=== PATIENT | female | born 1995 | race Caucasian/White ===

== ENCOUNTER 2017-04-17 17:28 | Emergency (ER) | payer OTHER ==
--- NOTE | ~2017-04-17 | CT4 ---
[facility] A Service of [facility] RADIOLOGY TEXT RESULTS PATIENT: GILDA MCKEON LOCATION: [facility] : 95 UNIT #: [id number] AGE: [address]: Leonidas Demarco MD SEX: F ORDER DR: [id number] [facility] [address] [facility]. [place], [place] [address] [id number] MR#: [id number] #: [id number] NAME: GILDA MCKEON : 1995 SEX: F STUDY DATE/TIME: 04/17/2017 21:54 UNIT: [facility] ROOM: STUDY DESCRIPTION: CT Abd and Pelv Wo Cont Attending Physician: Leonidas Demarco M.D. Ordering Physician: Leon Bright M.D. Primary Care Physician: Primary Care Physician No MEDICAL IMAGING REPORT This report is preliminary unless electronic signature is present EXAM Abdomen and pelvis CT no contrast, 04/17/2017 INDICATION 21-year-old female with abdominal pain. Heroin usage. Left lower quadrant abdominal pain and nausea today. TECHNIQUE Noncontrast abdomen and pelvis CT was performed. This CT exam was performed with one or more of the following radiation dose reduction techniques: automatic exposure control, adjustment of mA and/or kV according to patient size, and iterative reconstruction. COMPARISON 09/10/2016 FINDINGS Exam markedly degraded by noncontrast technique. Included lung bases are clear. Aorta demonstrates no aneurysm. The spleen, adrenal glands and pancreas are unremarkable and the gallbladder is unremarkable along with the liver. There is a tiny nonobstructing stone in the right kidney. CT PELVIS: The bladder is enlarged and measures up to 18.0 x 9.0 x 13.0 cm. The patient would most likely benefit from Durand catheter placement if unable to void voluntarily. There is no drainable fluid collection in the pelvis or adnexal mass. The bladder displaces peripheral low abdomen and pelvic structures including the uterus displaced posteriorly. No evidence of bowel obstruction. No focal inflammatory change of the bowel. Appendix unremarkable to the extent visualized. Inguinal canals are normal. No suspicious bone lesion. IMPRESSION [facility] A Service of [facility] RADIOLOGY TEXT RESULTS PATIENT: GILDA MCKEON [id number] [birth year] UNIT #: [id number] AGE: [address]: Leonidas Demarco MD SEX: F ORDER DR: 1. The bladder is markedly dilated and the patient would likely benefit from Durand catheter placement if unable to void voluntarily. The bladder measures up to 18.0 x 13.0 x 9.0 cm. 2. Tiny nonobstructing stone in the right kidney. 3. The examination otherwise is negative. The appendix is normal. Dictated by... Avi Abbott M.D. THIS IS AN ELECTRONICALLY VERIFIED REPORT Avi Abbott M.D. at 04/18/2017 2:03 PM Loraine TD: 04/18/2017 12:27 JOB #: [id number] MEDICAL IMAGING REPORT Page 1 of 1 COPY
[~2017-04-17 17:28] MED LIST: ADVAIR 250-501 EACH IH; ALBUTEROL17 GM INH; AZITHROMYCIN250 MG PO; LORATADINE PO; MOTRIN400 MG PO; PREDNISONE PO; SINGULAIR PO
[2017-04-17 20:26] LABS: URINE SOURCE CLEAN CATCH
[2017-04-17 20:37] LABS: BASOPHIL% 0.1 % (0-2.5); HEMATOCRIT 42.1 % (35.0-45.0); HEMOGLOBIN 14.1 gm/dL (12.0-16.0); LYMPHOCYTE# 1.1 X10e3 (1.0-3.5); LYMPHOCYTE% 6.9 % (17.0-45.0); MEAN CELL VOLUME 90.1 FL (83-96); MEAN CORPUSCULAR HEMOGLOBIN 30.3 PG (28-34); MEAN CORPUSCULAR HGB CONC 33.6 g/dL (30-36); MEAN PLATELET VOLUME 7.8 FL (6.5-11.5); MONOCYTE% 6.3 % (3.0-12.0); NEUTROPHIL# 13.5 X10e3 (1.5-7.1); NEUTROPHIL% 86.7 % (40-75); PLATELET COUNT 266 X10e3 (140-420); RED BLOOD COUNT 4.67 X10e (3.90-5.30); RED CELL DISTRIBUTION WIDTH 12.3 % (11.0-15.5); WHITE BLOOD COUNT 15.6 X10e3 (4.0-10.5)
[2017-04-17 20:38] LABS: DIFF IND YES
[2017-04-17 20:49] LABS: U HYALINE CASTS AUWI 0-2 /[LPF]; URBCS1 AUWI 0-2 /[HPF] (0-2); URINE APPEARANCE CLEAR; URINE BACTERIA AUWI NEG (NEGATIVE); URINE BILIRUBIN NEG (NEG); URINE BLOOD TRACE (NEG); URINE COLOR YELLOW; URINE GLUCOSE NEG (NEG); URINE KETONE 1+ (NEG); URINE LEUKOCYTE ESTERASE NEG (NEG); URINE NITRATE NEG (NEG); URINE PH 5.5 (5-8); URINE PROTEIN 1+ (NEG); URINE SPECIFIC GRAVITY 1.022 (1.003-1.035); URINE SQUAMOUS EPITHELIAL CELL NONE SEEN /[HPF]; URINE UROBILINOGEN 0.2 MG/DL (NEG); UWBCS1 AUWI 0-2 (0-5)
[2017-04-17 20:52] LABS: CULTURE INDICATED? NO
[2017-04-17 20:57] LABS: ALBUMIN SERUM 4.9 g/dL (3.5-5.0); ALKALINE PHOSPHATASE 58 U/L (32-92); ALT (SGPT) 74 U/L (10-40); AST (SGOT) 115 U/L (10-42); BILIRUBIN, DIRECT 0.3 mg/dL (0.0-0.2); BILIRUBIN,INDIRECT 1.8 mg/dL (0.0-0.9); BILIRUBIN,TOTAL 2.1 mg/dL (0.2-2.0); BLOOD UREA NITROGEN 16 mg/dL (9-23); BUN/CREATININE RATIO 26.66; CALCIUM SERUM 9.5 mg/dL (8.4-10.2); CARBON DIOXIDE 24 mmol/L (22-31); CHLORIDE 99 mmol/L (100-111); CREATININE SERUM 0.6 mg/dL (0.6-1.4); GLOM FILT RATE Estimated 130.3 mL/min (>60); GLUCOSE FASTING 95 mg/dL (70-110); POTASSIUM 4.2 mmol/L (3.5-5.1); PROTEIN TOTAL SERUM 8.2 g/dL (6.0-8.3); SODIUM 135 mmol/L (135-145)
[2017-04-17 20:59] LABS: AMPHETAMINE NEG (NEG); BARBITURATES NEG (NEG); BENZODIAZEPINES NEG (NEG); COCAINE NEG (NEG); MARIJUANA NEG (NEG); OPIATES POS (NEG); TRICYCLIC ANTIDEPRESSANTS NEG (NEG); U METHADONE NEG (NEG)
[2017-04-17 20:59] LABS: ALCOHOL BLOOD <5 mg/dL (0)
[2017-04-17 21:09] LABS: PLATELET ESTIMATE NORMAL (NORMAL)
[2017-04-17 21:10] LABS: ANISOCYTOSIS MOD; HYPOCHROMIA SL
== END 2017-04-18 | disposition home or self-care (01) ==
LOC: CED 17:28
PROVIDERS: Emergency Medicine
DX: T40.1X1A Poisoning by heroin, accidental (unintentional), initial encounter (principal); Z91.040 Latex allergy status
CPT/HCPCS: 36415; 51701; 74176; 80048; 80076; 80307; 81003; 83690; 84703; 85025; 99285; G0480

== ENCOUNTER 2017-05-21 13:54 | Emergency (ER) | payer OTHER ==
[~2017-05-21] VITALS: Ht 167.6 cm; Wt 66.2 kg
[2017-05-21 14:52] LABS: BASOPHIL% 0.5 % (0-2.5); EOSINOPHIL# 0.3 X10e3 (0-0.7); EOSINOPHIL% 4.9 % (0.0-7.0); HEMATOCRIT 40.6 % (35.0-45.0); HEMOGLOBIN 13.5 gm/dL (12.0-16.0); LYMPHOCYTE# 1.6 X10e3 (1.0-3.5); LYMPHOCYTE% 27.3 % (17.0-45.0); MEAN CELL VOLUME 90.1 FL (83-96); MEAN CORPUSCULAR HEMOGLOBIN 29.9 PG (28-34); MEAN CORPUSCULAR HGB CONC 33.2 g/dL (30-36); MEAN PLATELET VOLUME 7.3 FL (6.5-11.5); MONOCYTE# 0.1 X10e3 (0-1.0); MONOCYTE% 2.5 % (3.0-12.0); NEUTROPHIL# 3.8 X10e3 (1.5-7.1); NEUTROPHIL% 64.8 % (40-75); PLATELET COUNT 293 X10e3 (140-420); WHITE BLOOD COUNT 5.8 X10e3 (4.0-10.5)
[2017-05-21 14:58] LABS: DIFF IND NO
[2017-05-21 15:00] LABS: URINE SOURCE CLEAN CATCH
[2017-05-21 15:15] LABS: ALBUMIN SERUM 4.2 g/dL (3.5-5.0); BILIRUBIN, DIRECT 0.3 mg/dL (0.0-0.2); BILIRUBIN,TOTAL 1.3 mg/dL (0.2-2.0); BUN/CREATININE RATIO 12.85; CALCIUM SERUM 9.4 mg/dL (8.4-10.2); CREATININE SERUM 0.7 mg/dL (0.6-1.4); POTASSIUM 3.7 mmol/L (3.5-5.1); PROTEIN TOTAL SERUM 7.8 g/dL (6.0-8.3)
[2017-05-21 15:17] LABS: URINE APPEARANCE CLOUDY; URINE BLOOD 1+ (NEG); URINE COLOR DK YELLOW; URINE GLUCOSE NEG (NEG); URINE KETONE NEG (NEG); URINE LEUKOCYTE ESTERASE 2+ (NEG); URINE NITRATE NEG (NEG); URINE PH 5.5 (5-8); URINE PROTEIN 2+ (NEG); URINE SPECIFIC GRAVITY 1.019 (1.003-1.035)
[2017-05-21 15:20] LABS: CULTURE INDICATED? YES; URBCS1 AUWI 25-50 /[HPF] (0-2); URINE BACTERIA AUWI NEG (NEGATIVE); URINE SQUAMOUS EPITHELIAL CELL OCC /[HPF]; UWBCS1 AUWI INNUM (0-5)
[2017-05-21 15:26] LABS: URINE BILIRUBIN NEG (NEG)
[2017-05-21 15:36] LABS: AMPHETAMINE NEG (NEG); BARBITURATES NEG (NEG); BENZODIAZEPINES NEG (NEG); COCAINE POS (NEG); MARIJUANA POS (NEG); OPIATES POS (NEG); TRICYCLIC ANTIDEPRESSANTS NEG (NEG); U METHADONE NEG (NEG)
== END 2017-05-21 16:40 | disposition home or self-care (01) ==
LOC: CED 13:54 → CFTX 13:54
PROVIDERS: Physician Assistant
DX: N30.00 Acute cystitis without hematuria (principal); F17.210 Nicotine dependence, cigarettes, uncomplicated; J45.909 Unspecified asthma, uncomplicated; Z98.890 Other specified postprocedural states; F41.9 Anxiety disorder, unspecified; F31.9 Bipolar disorder, unspecified; F43.10 Post-traumatic stress disorder, unspecified
CPT/HCPCS: 36415; 80048; 80076; 80307; 81003; 84703; 85025; 86592; 87086; 87806; 99284

== ENCOUNTER 2017-06-03 18:33 | Inpatient (IN) | payer OTHER ==
[~2017-06-03] VITALS: Ht 167.6 cm; Wt 66.1 kg
--- NOTE | ~2017-06-03 | HP ---
Unit #: [id number] #: [id number] Patient: GILDA MCKEON [id number] [address] [place], [place] [address] [id number] I MR#: [id number] NAME: GILDA MCKEON ROOM: 332 Age: 22 Sex: F Admission Date: 06/03/2017 : 1995 Attending Physician: Shilpa Dominguez M.D. Primary Care Physician: No Primary Care Physician HISTORY AND PHYSICAL CHIEF COMPLAINT Change in mental status, overdose. HISTORY OF PRESENT ILLNESS This is a 22-year-old female who has a history of polysubstance abuse, asthma, posttraumatic stress disorder, anxiety, bipolar as per old records. She was found in the convenience store confused, acting weird and someone called EMS and she was brought to the emergency room here. She was opening eyes, but not answering questions. She was found to be tachycardic, heart rate 137. Eventually she has been admitted and is one-to-one with 72 hour hold. Lactic acid level was elevated at 2.4. She was unable to give me any history. She was just looking, but not answering questions. Opening eyes and keeps looking. PAST MEDICAL HISTORY As per old records, 1. History of polysubstance abuse. 2. History of asthma. 3. Posttraumatic stress disorder. 4. Anxiety. 5. Bipolar. 6. Heroin use. PAST SURGICAL HISTORY Cervical biopsy. ALLERGIES Latex. HOME MEDICATIONS None. REVIEW OF SYSTEMS Unable to obtain from the patient. PHYSICAL EXAMINATION GENERAL: The patient is a 22-year-old female lying in the bed comfortably, currently not in any distress. She is alert and oriented times zero. She does open eyes, not answering questions. VITALS: Temperature 97.7, heart rate 137, respiratory rate 16, blood pressure 154/86, oxygen 100% on room air. HEENT: Pupils are equal and reactive to light and accommodation. Head is normocephalic, atraumatic. NECK: Supple. No jugular venous distension. Unit #: [id number] #: [id number] Patient: GILDA MCKEON LUNGS: Clear to auscultation bilaterally. No rhonchi. No wheezing. HEART: S1 and S2. Regular rate and rhythm. Sinus tachycardia. ABDOMEN: Soft, nontender and nondistended. Bowel sounds positive. EXTREMITIES: Bilateral lower extremities, lacerations on both lower legs, but no cyanosis, clubbing or edema. NEUROLOGIC: Unable to do neurologic exam. DIAGNOSTIC STUDIES IMAGING: Chest x-ray negative. CT head negative. LABORATORY: test negative. Lactic acid 2.4, white blood cell count 11, hemoglobin 14, hematocrit 43, platelets 391, sodium 140, potassium 4.3, chloride 107, CO2 21, glucose 130, BUN 10, creatinine 1. Bilirubin direct is 0.3, total bilirubin 1.6, AST 25, ALT 14, total protein 9.1, Tylenol less than 10, (1) less than 10, alcohol less than 5. ASSESSMENT 1. Change in mental status, most likely overdose. Urine toxicology is pending at the time of dictation, with a history of polysubstance and heroin abuse. 2. Sinus tachycardia. 3. Polysubstance abuse. 4. History of asthma. 5. Posttraumatic stress disorder. 6. Anxiety/bipolar. 7. DVT prophylaxis. Will place the patient on SCDs. PLAN Admit to the hospital. Will start on IV fluids. Will keep one-to-one. Ask psychiatry, Dr. Santiago, to evaluate. Dictated by Rodney Bell/ramon TD: 06/04/2017 08:38 JOB #: [id number] HISTORY AND PHYSICAL Page 1 of 1 X X HISTORY AND PHYSICAL
--- NOTE | ~2017-06-03 | EKG ---
PATIENT: GILDA MCKOEN UNIT #: [id number] Ventricular Rate: 140 BPM Atrial Rate: 140 BPM P-R Interval: 140 ms QRS Duration: 72 ms Q-T Interval: 276 ms QTC Calculation(Bezet): 421 ms P [place]: 71 degrees Calculated R [place]: 65 degrees Calculated T [place]: 50 degrees Diagnosis Line: Sinus tachycardia Diagnosis Line: Biatrial enlargement Diagnosis Line: Nonspecific ST abnormality Diagnosis Line: Abnormal ECG Diagnosis Line: When compared with ECG of 02-OCT-2016 04:39, Diagnosis Line: No significant change was found Diagnosis Line: Confirmed by TALISHA WHITE MD ([id number]) on Diagnosis Line: 06/05/2017 4:54:18 PM INTERPRETING MD: SONAM
--- NOTE | ~2017-06-03 | CT71 ---
[facility] A Service of [facility] RADIOLOGY TEXT RESULTS PATIENT: GILDA MCKEON LOCATION: [facility] 332 : [birth year] UNIT #: [id number] AGE: [address]: Shilpa Dominguez MD SEX: F ORDER DR: [id number] [place] [id number] [facility]. [place], [place] [address] [id number] I MR#: [id number] Acc #: [id number] NAME: GILDA MCKEON : 1995 SEX: F STUDY DATE/TIME: 06/03/2017 21:57 UNIT: [facility] PCU ROOM: [facility] STUDY DESCRIPTION: CT Head Wo Contrast Attending Physician: Shilpa Dominguez M.D. Ordering Physician: Alba Jones M.D. Primary Care Physician: No Primary Care Physician MEDICAL IMAGING REPORT This report is preliminary unless electronic signature is present EXAM CT head without contrast, 06/03/2017. HISTORY 22-year-old female with altered mental status and confusion today. History of drug abuse. COMPARISON CT head, 05/11/2010. TECHNIQUE Routine unenhanced axial images performed through the brain. This CT exam was performed with one or more of the following radiation dose reduction techniques: automatic exposure control, adjustment of mA and/or kV according to patient size, and iterative reconstruction. FINDINGS No hemorrhage, acute infarction, mass lesion, or abnormal extraaxial fluid collection. No midline shift or focal mass effect. Ventricular system normal in size and configuration. No acute bony abnormality. The visualized paranasal sinuses and mastoid air cells are clear. IMPRESSION No acute intracranial abnormality. Dictated by... Leonidas Castellon M.D. THIS IS AN ELECTRONICALLY VERIFIED REPORT Leonidas Castellon M.D. at 06/05/2017 10:44 AM [facility] A Service [facility] RADIOLOGY TEXT RESULTS PATIENT: GILDA MCKEON LOCATION: [facility] 332- : 95 UNIT #: [id number] AGE: [address]: Shilpa Dominguez MD SEX: F ORDER DR: CARLY/jase TD: 06/04/2017 21:43 JOB #: [id number] MEDICAL IMAGING REPORT Page 1 of 1 COPY
--- NOTE | ~2017-06-03 | CR72 ---
[facility] A Service of [facility] RADIOLOGY TEXT RESULTS PATIENT: GILDA MCKEON LOCATION: [facility] 332-01 : [birth year] UNIT #: [id number] AGE: [address]: Shilpa Dominguez MD SEX: F ORDER DR: [id number] [facility] [address] [facility]. [place], [place] [address] [id number] I MR#: [id number] Acc #: [id number] NAME: GILDA MCKEON : 1995 SEX: F STUDY DATE/TIME: 06/03/2017 20:52 UNIT: [address] ROOM: [facility] STUDY DESCRIPTION: CR Chest Single View Portable Attending Physician: Shilpa Dominguez M.D. Ordering Physician: Alba Jones M.D. Primary Care Physician: Primary Care Physician No MEDICAL IMAGING REPORT This report is preliminary unless electronic signature is present EXAM Portable chest, 06/03/2017 HISTORY 22-year-old female with altered mental status and chest congestion tonight. Overdose. COMPARISON Chest, 09/26/2016 FINDINGS Frontal chest demonstrates clear lungs. No pleural effusion or pneumothorax. Heart size and mediastinum are normal. Pulmonary vasculature normal. IMPRESSION No acute cardiopulmonary findings. Dictated by... Leonidas Castellon M.D. THIS IS AN ELECTRONICALLY VERIFIED REPORT Leonidas Castellon M.D. at 06/05/2017 10:51 AM CARLY/asiya TD: 06/04/2017 20:40 JOB #: [id number] MEDICAL IMAGING REPORT Page 1 of 1 COPY
[2017-06-03 20:13] LABS: ALBUMIN SERUM 4.9 g/dL (3.5-5.0); ALKALINE PHOSPHATASE 69 U/L (32-92); ALT (SGPT) 41 U/L (10-40); AST (SGOT) 25 U/L (10-42); BILIRUBIN, DIRECT 0.3 mg/dL (0.0-0.2); BILIRUBIN,INDIRECT 1.3 mg/dL (0.0-0.9); BILIRUBIN,TOTAL 1.6 mg/dL (0.2-2.0); BLOOD UREA NITROGEN 10 mg/dL (9-23); CALCIUM SERUM 10.6 mg/dL (8.4-10.2); CARBON DIOXIDE 21 mmol/L (22-31); CHLORIDE 107 mmol/L (100-111); GLOM FILT RATE Estimated 79.9 mL/min (>60); GLUCOSE FASTING 130 mg/dL (70-110); POTASSIUM 4.3 mmol/L (3.5-5.1); PROTEIN TOTAL SERUM 9.1 g/dL (6.0-8.3); SALICYLATE <4.0 mg/dL; SODIUM 140 mmol/L (135-145)
[2017-06-03 20:15] LABS: ACETAMINOPHEN <10 ug/mL; ALCOHOL BLOOD <5 mg/dL (0)
[2017-06-03 20:56] LABS: BASOPHIL% 0.1 % (0-2.5); HEMATOCRIT 43.7 % (35.0-45.0); HEMOGLOBIN 14.4 gm/dL (12.0-16.0); LYMPHOCYTE# 0.8 X10e3 (1.0-3.5); LYMPHOCYTE% 7.1 % (17.0-45.0); MEAN CELL VOLUME 88.6 FL (83-96); MEAN CORPUSCULAR HEMOGLOBIN 29.2 PG (28-34); MEAN PLATELET VOLUME 8.4 FL (6.5-11.5); MONOCYTE# 0.6 X10e3 (0-1.0); MONOCYTE% 5.2 % (3.0-12.0); NEUTROPHIL% 87.6 % (40-75); PLATELET COUNT 391 X10e3 (140-420); RED BLOOD COUNT 4.93 X10e (3.90-5.30); RED CELL DISTRIBUTION WIDTH 12.6 % (11.0-15.5); WHITE BLOOD COUNT 11.4 X10e3 (4.0-10.5)
[2017-06-03 20:57] LABS: DIFF IND NO
[2017-06-03 22:46] LABS: URINE SOURCE CLEAN CATCH
[2017-06-03 22:58] LABS: URINE APPEARANCE CLOUDY; URINE BILIRUBIN NEG (NEG); URINE BLOOD NEG (NEG); URINE COLOR YELLOW; URINE GLUCOSE NEG (NEG); URINE KETONE 2+ (NEG); URINE LEUKOCYTE ESTERASE 1+ (NEG); URINE NITRATE NEG (NEG); URINE PH 6.5 (5-8); URINE PROTEIN NEG (NEG); URINE SPECIFIC GRAVITY 1.018 (1.003-1.035); URINE UROBILINOGEN 0.2 MG/DL (NEG)
[2017-06-03 23:02] LABS: CULTURE INDICATED? YES; URBCS1 AUWI 0-2 /[HPF] (0-2); URINE BACTERIA AUWI 1+ (NEGATIVE)
[2017-06-03 23:14] LABS: AMPHETAMINE POS (NEG); BARBITURATES NEG (NEG); BENZODIAZEPINES NEG (NEG); COCAINE NEG (NEG); MARIJUANA NEG (NEG); OPIATES POS (NEG); TRICYCLIC ANTIDEPRESSANTS NEG (NEG); U METHADONE NEG (NEG)
[2017-06-03 23:16] LABS: URINE MUCUS PRESENT; URINE SQUAMOUS EPITHELIAL CELL MANY /[HPF]
[2017-06-04 07:15] LABS: HEMATOCRIT 38.5 % (35.0-45.0); MEAN CELL VOLUME 87.6 FL (83-96); MEAN CORPUSCULAR HEMOGLOBIN 29.5 PG (28-34); MEAN CORPUSCULAR HGB CONC 33.7 g/dL (30-36); MEAN PLATELET VOLUME 7.9 FL (6.5-11.5); RED BLOOD COUNT 4.4 X10e (3.90-5.30); RED CELL DISTRIBUTION WIDTH 12.8 % (11.0-15.5); WHITE BLOOD COUNT 7.8 X10e3 (4.0-10.5)
[2017-06-04 07:48] LABS: BUN/CREATININE RATIO 13.33; CALCIUM SERUM 9.2 mg/dL (8.4-10.2); CREATININE SERUM 0.6 mg/dL (0.6-1.4); GLOM FILT RATE Estimated 129.4 mL/min (>60); POTASSIUM 4.6 mmol/L (3.5-5.1)
== END 2017-06-04 19:30 | disposition left against medical advice (07) | DRG 918 ==
LOC: CED 18:33 → C3A PCU 23:12 → CED 23:12 → CEDOF 23:12 → C3A PCU 06-04 00:53 → CEDOF 06-04 00:53 → C3A PCU 06-04 06:50 → CED 06-04 09:00 → CEDOF 06-04 09:00 → C3A PCU 06-04 19:30
PROVIDERS: Emergency Medicine; Internal Medicine; Student in an Organized Health Care Education/Training Program
DX: T50.901A Poisoning by unspecified drugs, medicaments and biological substances, accidental (unintentional), initial encounter (principal); F31.9 Bipolar disorder, unspecified; R00.0 Tachycardia, unspecified; Y92.9 Unspecified place or not applicable; R41.82 Altered mental status, unspecified; F19.10 Other psychoactive substance abuse, uncomplicated; J45.909 Unspecified asthma, uncomplicated; F43.10 Post-traumatic stress disorder, unspecified; F41.9 Anxiety disorder, unspecified; R50.9 Fever, unspecified; Z91.040 Latex allergy status
CPT/HCPCS: 36415; 51702; 70450; 71010; 80048; 80076; 80307; 81003; 83605; 84703; 85025; 85027; 87040; 87086; 93005; 93306; 96361; 96365; 96375; 99285; G0480; J0696; J2060; J2543; J3370

== ENCOUNTER 2017-06-04 23:29 | Emergency (ER) | payer OTHER ==
[2017-06-05 01:59] LABS: ALBUMIN SERUM 4.8 g/dL (3.5-5.0); ALKALINE PHOSPHATASE 60 U/L (32-92); ALT (SGPT) 31 U/L (10-40); AST (SGOT) 20 U/L (10-42); BILIRUBIN, DIRECT 0.3 mg/dL (0.0-0.2); BILIRUBIN,INDIRECT 2.6 mg/dL (0.0-0.9); BILIRUBIN,TOTAL 2.9 mg/dL (0.2-2.0); BLOOD UREA NITROGEN 12 mg/dL (9-23); BUN/CREATININE RATIO 13.33; CALCIUM SERUM 10.2 mg/dL (8.4-10.2); CARBON DIOXIDE 22 mmol/L (22-31); CHLORIDE 109 mmol/L (100-111); CREATININE SERUM 0.9 mg/dL (0.6-1.4); GLOM FILT RATE Estimated 90.8 mL/min (>60); GLUCOSE FASTING 95 mg/dL (70-110); POTASSIUM 4.2 mmol/L (3.5-5.1); PROTEIN TOTAL SERUM 8.8 g/dL (6.0-8.3); SALICYLATE <4.0 mg/dL; SODIUM 142 mmol/L (135-145)
[2017-06-05 02:03] LABS: ACETAMINOPHEN <10 ug/mL; ALCOHOL BLOOD <5 mg/dL (0)
[2017-06-05 02:33] LABS: AMPHETAMINE POS (NEG); BARBITURATES NEG (NEG); BENZODIAZEPINES NEG (NEG); COCAINE NEG (NEG); MARIJUANA NEG (NEG); OPIATES POS (NEG); TRICYCLIC ANTIDEPRESSANTS NEG (NEG); U METHADONE NEG (NEG)
== END 2017-06-05 10:26 | disposition home or self-care (01) ==
LOC: CED 23:29
PROVIDERS: Emergency Medicine
DX: F19.10 Other psychoactive substance abuse, uncomplicated (principal); G47.00 Insomnia, unspecified; F17.210 Nicotine dependence, cigarettes, uncomplicated; Z91.040 Latex allergy status
CPT/HCPCS: 36415; 80048; 80076; 80307; 84703; 99284; G0480

== ENCOUNTER 2017-06-05 15:03 | Emergency (ER) | payer OTHER ==
--- NOTE | ~2017-06-05 | EKG ---
PATIENT: GILDA MCKEON UNIT #: [id number] Ventricular Rate: 74 BPM Atrial Rate: 74 BPM P-R Interval: 138 ms QRS Duration: 78 ms Q-T Interval: 406 ms QTC Calculation(Bezet): 450 ms P [place]: 66 degrees Calculated R [place]: 60 degrees Calculated T [place]: 49 degrees Diagnosis Line: Normal sinus rhythm Diagnosis Line: Normal ECG Diagnosis Line: When compared with ECG of 03-JUN-2017 19:07, Diagnosis Line: Vent. rate has decreased BY 66 BPM Diagnosis Line: Nonspecific T wave abnormality no longer evident Diagnosis Line: in Inferior leads Diagnosis Line: Confirmed by ASHKAN DORAN MD ([id number]) on 06/05/2017 Diagnosis Line: 8:05:17 PM INTERPRETING MD: ANDREEA HA
[2017-06-05 17:50] LABS: URINE SOURCE CLEAN CATCH
[2017-06-05 18:12] LABS: BASOPHIL% 0.3 % (0-2.5); HEMATOCRIT 39.7 % (35.0-45.0); HEMOGLOBIN 13.2 gm/dL (12.0-16.0); LYMPHOCYTE# 1.6 X10e3 (1.0-3.5); LYMPHOCYTE% 20.1 % (17.0-45.0); MEAN CELL VOLUME 87.9 FL (83-96); MEAN CORPUSCULAR HEMOGLOBIN 29.2 PG (28-34); MEAN CORPUSCULAR HGB CONC 33.2 g/dL (30-36); MONOCYTE# 0.5 X10e3 (0-1.0); MONOCYTE% 6.9 % (3.0-12.0); NEUTROPHIL# 5.8 X10e3 (1.5-7.1); NEUTROPHIL% 72.7 % (40-75); PLATELET COUNT 370 X10e3 (140-420); RED BLOOD COUNT 4.51 X10e (3.90-5.30); RED CELL DISTRIBUTION WIDTH 12.9 % (11.0-15.5); WHITE BLOOD COUNT 7.9 X10e3 (4.0-10.5)
[2017-06-05 18:14] LABS: URINE APPEARANCE CLOUDY; URINE BILIRUBIN NEG (NEG); URINE BLOOD NEG (NEG); URINE COLOR DK YELLOW; URINE GLUCOSE NEG (NEG); URINE KETONE 3+ (NEG); URINE LEUKOCYTE ESTERASE 1+ (NEG); URINE NITRATE NEG (NEG); URINE PH 5.5 (5-8); URINE PROTEIN TRACE (NEG); URINE SPECIFIC GRAVITY 1.029 (1.003-1.035)
[2017-06-05 18:16] LABS: CULTURE INDICATED? YES; U HYALINE CASTS AUWI 0-2 /[LPF]; URBCS1 AUWI 0-2 /[HPF] (0-2); URINE BACTERIA AUWI NEG (NEGATIVE); URINE SQUAMOUS EPITHELIAL CELL OCC /[HPF]
[2017-06-05 18:16] LABS: DIFF IND NO
[2017-06-05 18:22] LABS: ALBUMIN SERUM 4.5 g/dL (3.5-5.0); ALKALINE PHOSPHATASE 54 U/L (32-92); ALT (SGPT) 25 U/L (10-40); AST (SGOT) 17 U/L (10-42); BILIRUBIN, DIRECT 0.3 mg/dL (0.0-0.2); BILIRUBIN,INDIRECT 2.2 mg/dL (0.0-0.9); BILIRUBIN,TOTAL 2.5 mg/dL (0.2-2.0); BLOOD UREA NITROGEN 17 mg/dL (9-23); BUN/CREATININE RATIO 28.33; CALCIUM SERUM 9.8 mg/dL (8.4-10.2); CARBON DIOXIDE 19 mmol/L (22-31); CHLORIDE 109 mmol/L (100-111); CREATININE SERUM 0.6 mg/dL (0.6-1.4); GLOM FILT RATE Estimated 129.4 mL/min (>60); GLUCOSE FASTING 101 mg/dL (70-110); POTASSIUM 3.9 mmol/L (3.5-5.1); PROTEIN TOTAL SERUM 8.2 g/dL (6.0-8.3); SODIUM 138 mmol/L (135-145)
[2017-06-05 18:27] LABS: ACETAMINOPHEN <10 ug/mL; ALCOHOL BLOOD <5 mg/dL (0)
[2017-06-05 18:32] LABS: AMPHETAMINE POS (NEG); BARBITURATES NEG (NEG); BENZODIAZEPINES POS (NEG); COCAINE NEG (NEG); MARIJUANA NEG (NEG); OPIATES POS (NEG); TRICYCLIC ANTIDEPRESSANTS NEG (NEG); U METHADONE NEG (NEG)
== END 2017-06-05 18:46 | disposition home or self-care (01) ==
LOC: CED 15:03
PROVIDERS: Emergency Medicine
DX: F32.9 Major depressive disorder, single episode, unspecified (principal); J45.909 Unspecified asthma, uncomplicated; F43.10 Post-traumatic stress disorder, unspecified; F31.9 Bipolar disorder, unspecified; F19.10 Other psychoactive substance abuse, uncomplicated; F17.210 Nicotine dependence, cigarettes, uncomplicated; Z91.040 Latex allergy status
CPT/HCPCS: 51702; 80048; 80076; 80307; 81003; 85025; 87086; 93005; 99284; G0480